=== PATIENT | female | born 1990 | race Caucasian/White ===

== ENCOUNTER 2019-08-02 21:34 | Emergency (ER) | payer MEDICAID, OTHER ==
[2019-08-02] MEDS ORDERED: NORMAL SALINE 1000 ML 1,000 ML IV ONE (23:25)
[2019-08-02] MEDS ORDERED: KETOROLAC TROMETHAMINE 60 MG/2 ML SDV IM ONE (23:25)
[2019-08-02] MEDS ORDERED: ONDANSETRON 4 MG TAB.RAPDIS PO ONE (23:25)
--- NOTE | 2019-08-02 23:26 | ER Document Report ---
ED Medical Screen (RME) - General Chief Complaint: Pelvic Pain Stated Complaint: POSSIBLE KIDNEY STONES Time Seen by Provider: 08/02/19 23:21 Primary Care Provider: CONSTANTIN GARCIA MD [Primary Care Provider] - Follow up as needed TRAVEL OUTSIDE OF THE [place] IN LAST 30 DAYS: No - HPI Notes: 08/02/19 23:26 29-year-old female to the emergency department with complaints of right-sided flank pain, right pelvic pain, and mid pelvic pain for the past 2 days with associated dysuria and hematuria. She states that she is passing clots. She states she feels like this may be a kidney stone. She last had one 1 year ago. She admits to nausea and vomiting. She denies any fevers or chills. Performed a brief medical screening exam on the patient determined that she will need further evaluation and management by main side provider. I placed initial orders to help expedite her care. - Related Data Allergies/Adverse Reactions: No Known Allergies Allergy (Unverified 08/02/19 23:17) Physical Exam - Vital signs Vitals: Temp Pulse Resp BP Pulse Ox 98.7 F 85 20 155/69 H 97 08/02/19 22:05 08/02/19 22:05 08/02/19 22:05 08/02/19 22:05 08/02/19 22:05 Course - Vital Signs Vital signs: Temp Pulse Resp BP Pulse Ox 98.7 F 85 20 155/69 H 97 08/02/19 22:05 08/02/19 22:05 08/02/19 22:05 08/02/19 22:05 08/02/19 22:05 Doctor's Discharge - Discharge Referrals: CONSTANTIN GARCIA MD [Primary Care Provider] - Follow up as needed
[2019-08-02 23:56] LABS: ABSOLUTE EOSINOPHILS # (AUTO) 0.1 10^3/uL (0.0-0.6); ABSOLUTE LYMPHOCYTES (AUTO) 3.2 10^3/uL (0.5-4.7); ABSOLUTE MONOCYTES (AUTO) 0.5 10^3/uL (0.1-1.4); ABSOLUTE NEUT (AUTO) 5.5 10^3/uL (1.7-8.2); BASOPHILS % (AUTO) 0.5 % (0-2); EOSINOPHILS % (AUTO) 0.8 % (0-6); HEMATOCRIT 40.8 % (36.0-47.0); HEMOGLOBIN 14.1 g/dL (12.0-15.5); LYMPHOCYTES % (AUTO) 34.8 % (13-45); MEAN CORPUSCULAR HEMOGLOBIN 30.5 pg (27.0-33.4); MEAN CORPUSCULAR HGB CONC 34.5 g/dL (32.0-36.0); MEAN CORPUSCULAR VOLUME 89 fl (80-97); MONOCYTES % (AUTO) 5.1 % (3-13); PLATELET COUNT 300 10^3/uL (150-450); RED BLOOD COUNT 4.61 10^6/uL (3.72-5.28); RED CELL DISTRIBUTION WIDTH 14.3 % (11.5-14.0); SEGMENTED NEUTROPHILS % (AUTO) 58.8 % (42-78); TOTAL CELLS COUNTED % (AUTO) 100 %; WHITE BLOOD COUNT 9.3 10^3/uL (4.0-10.5)
[2019-08-03 00:05] LABS: ALBUMIN 3.8 g/dL (3.5-5.0); ALKALINE PHOSPHATASE 133 U/L (38-126); ANION GAP 6 (5-19); ASPARTATE AMINO TRANSFERASE 102 U/L (14-36); BILIRUBIN,DIRECT 0.3 mg/dL (0.0-0.4); BILIRUBIN,TOTAL 0.3 mg/dL (0.2-1.3); BLOOD UREA NITROGEN 10 mg/dL (7-20); CALCIUM 9.6 mg/dL (8.4-10.2); CARBON DIOXIDE 33 mmol/L (22-30); CHLORIDE 99 mmol/L (98-107); GLUCOSE 124 mg/dL (75-110); POTASSIUM 4.5 mmol/L (3.6-5.0); TOTAL PROTEIN 6.7 g/dL (6.3-8.2)
--- NOTE | 2019-08-03 00:45 | RADIOLOGY REPORT (SQ) ---
EXAM DESCRIPTION: Noncontrast CT abdomen pelvis CLINICAL HISTORY: 29 years Female RIGHT flank pain, hematuria, eval stone COMPARISON: None. TECHNIQUE: Contiguous axial images obtained through the abdomen and pelvis without the use of IV contrast. Reformatted images obtained. This exam was performed according to our department optimization program which includes automated exposure control, adjustment of the mA and/or kv according to patient size and/or use of iterative reconstruction technique. FINDINGS: The visualized lung bases demonstrate subtle tree-in-bud nodularity within the lingula. Additionally, there is a 5 mm solid appearing nodule within the lateral left lung base. The liver appears unremarkable. The spleen and pancreas appear unremarkable. No adrenal masses. The kidneys appear unremarkable. No hydronephrosis. The gallbladder is visualized. No aneurysmal dilatation of the aorta. No bowel obstruction. There is moderate colonic stool burden. The appendix is unremarkable. Suggestion of multiple prominent appearing mesenteric lymph nodes, difficult to separate from adjacent bowel given noncontrast technique. Intrauterine device is noted. No significant free fluid noted. No suspicious lytic or blastic osseous lesions are identified. There is suggestion of potential transitional anatomy involving the right aspect of the L5-S1 level. IMPRESSION: 1. No CT evidence of nephrolithiasis or hydronephrosis. 2. Prominent mesenteric lymph nodes are nonspecific and difficult to evaluate with noncontrast technique. Findings could be reactive in nature or related to underlying process such as mesenteric adenitis.
--- NOTE | 2019-08-03 01:09 | ER Document Report ---
ED GI/ - General Chief Complaint: Pelvic Pain Stated Complaint: POSSIBLE KIDNEY STONES Time Seen by Provider: 08/02/19 23:21 Primary Care Provider: CONSTANTIN GARCIA MD [ACTIVE STAFF] - Follow up as needed Information source: Patient Notes: Patient reports for the past 1 to 2 days she is noticed blood in her urine with urinary frequency. And pain. Patient was suspicious that she may have a urinary tract infection versus a kidney stone. Patient reports that she had pain greatest in the right lower quadrant region. Noted nausea as well. Patient reports that she heard and saw her a stone passed while in the shower. Patient does give a history that she believes he passed a stone about 1 to 2 years ago never had any follow-up with urologist because there was no further occurrence of hematuria. TRAVEL OUTSIDE OF THE [place] IN LAST 30 DAYS: No - HPI Patient complains to provider of: Abdominal pain, Dysuria, Hematuria Onset: Yesterday Timing/Duration: Gradual, Intermittent Quality of pain: Achy, Cramping Severity at maximum: Severe Severity in ED: Severe Pain Level: 5 Context: Other - Spontaneous Location: RLQ Vaginal bleeding (Compared to normal period): None Sexual history: Active Associated symptoms: None, Dysuria Exacerbated by: Other Relieved by: Other - No relief until arriving to the emergency department Similar symptoms previously: Yes - Belief of passing kidney stones in the past Recently seen / treated by doctor: No - Related Data Allergies/Adverse Reactions: No Known Allergies Allergy (Unverified 08/02/19 23:17) Past Medical History - Social History Smoking Status: Current Every Day Smoker Lives with: Family Family History: Reviewed & Not Pertinent Patient has suicidal ideation: No Patient has homicidal ideation: No Pulmonary Medical History: Reports: None EENT Medical History: Reports: None Neurological Medical History: Reports: None Renal/ Medical History: Reports: Hx Kidney Stones Musculoskeletal Medical History: Reports None Skin Medical History: Reports None Review of Systems - Review of Systems Constitutional: Malaise EENT: No symptoms reported Cardiovascular: No symptoms reported Respiratory: No symptoms reported Gastrointestinal: No symptoms reported, Abdominal pain Genitourinary: Dysuria, Flank pain Female Genitourinary: No symptoms reported Musculoskeletal: No symptoms reported Skin: No symptoms reported Hematologic/Lymphatic: No symptoms reported Neurological/Psychological: No symptoms reported -: Yes All other systems reviewed and negative Physical Exam - Vital signs Vitals: Temp Pulse Resp BP Pulse Ox 98.7 F 85 20 155/69 H 97 08/02/19 22:05 08/02/19 22:05 08/02/19 22:05 08/02/19 22:05 08/02/19 22:05 Interpretation: Normal - General General appearance: Appears well, Alert - HEENT Head: Normocephalic, Atraumatic Eyes: Normal Pupils: PERRL - Respiratory Respiratory status: No respiratory distress Chest status: Nontender Breath sounds: Normal Chest palpation: Normal - Cardiovascular Rhythm: Regular Heart sounds: Normal auscultation Murmur: No - Abdominal Inspection: Normal Distension: No distension Bowel sounds: Normal Tenderness: Nontender, Other - Tenderness suprapubic more to the right. No guarding no rebound Organomegaly: No organomegaly - Back Back: Normal, Nontender - Extremities General upper extremity: Normal inspection, Nontender, Normal color, Normal ROM, Normal temperature General lower extremity: Normal inspection, Nontender, Normal color, Normal ROM, Normal temperature, Normal weight bearing. No: Kelsey's sign - Neurological Neuro grossly intact: Yes Cognition: Normal Orientation: AAOx4 [place]app[place] Coma Scale Eye Opening: Spontaneous [place] Coma Scale Verbal: Oriented [place] Coma Scale Motor: Obeys Commands Chappells Coma Scale Total: 15 Speech: Normal Motor strength normal: LUE, RUE, LLE, RLE Sensory: Normal - Psychological Associated symptoms: Normal affect, Normal mood - Skin Skin Temperature: Warm Skin Moisture: Dry Skin Color: Normal Course - Re-evaluation Re-evalutation: 08/03/19 03:55 Discussed with patient results of her CT scan which did not show evidence for kidney stones or any recent passage of kidney stones. There was mesenteric lymph nodes that were present uncertain as the etiology of why some were more prominent than others. Discussed with patient that there is a disease of h emorrhagic cystitis which is due to bacterial infection that gets inside the urinary bladder and causing hemorrhage of the mucosal lining. That is a likelihood that this is what patient has and therefore antibiotics has been given. The plan is to discharge patient home on antibiotics and pain management and to follow-up with urologist for further evaluation. Of note patient states that her systolic blood pressure is usually around 92 which is her baseline. Patient systolic blood pressure current time is 96. - Vital Signs Vital signs: Temp Pulse Resp BP Pulse Ox 98.7 F 66 14 90/55 L 96 08/02/19 22:05 08/03/19 02:02 08/03/19 02:02 08/03/19 03:01 08/03/19 03:01 - Laboratory Result Diagrams: 08/02/19 23:38 08/02/19 23:38 Laboratory results interpreted by me: 08/02/19 08/02/19 08/03/19 23:38 23:38 01:05 RDW 14.3 H Carbon Dioxide 33 H Glucose 124 H AST 102 H Alkaline Phosphatase 133 H Urine Protein 100 H Urine Blood MODERATE H Urine Urobilinogen 4.0 H Leukocyte Esterase Rfl MODERATE H Discharge - Discharge Clinical Impression: Acute hemorrhagic cystitis Hematuria Qualifiers: Hematuria type: gross Qualified Code(s): R31.0 - Gross hematuria Abdominal pain Qualifiers: Abdominal location: right lower quadrant Qualified Code(s): R10.31 - Right lower quadrant pain Urinary tract infection Qualifiers: Urinary tract infection type: acute cystitis Hematuria presence: with hematuria Qualified Code(s): N30.01 - Acute cystitis with hematuria Condition: Stable Disposition: HOME, SELF-CARE Instructions: Abdominal Pain ([facility]), Antinausea Medication ([facility]), Urinary Tract Infection ([facility]), Trimethoprim-Sulfa ([facility]) Prescriptions: Tramadol HCl [Ultram 50 mg Tablet] 50 mg PO Q6HP PRN #12 tab PRN Reason: severe pain Sulfamethoxazole/Trimethoprim [Bactrim Ds Tablet] 1 each PO BID #20 tablet Ondansetron HCl [Zofran] 8 mg PO TID PRN #10 tablet PRN Reason: nausea Referrals: CONSTANTIN GARCIA MD [ACTIVE STAFF] - Follow up as needed (Urology follow-up [facility], [address] [place] [address], [facility] telephone number area code [phone])
[2019-08-03 01:18] LABS: APPEARANCE,URINE CLOUDY; BILIRUBIN,URINE NEGATIVE (NEGATIVE); COLOR,URINE YELLOW; GLUCOSE, URINE NEGATIVE (NEGATIVE); KETONES,URINE NEGATIVE (NEGATIVE); PROTEIN,URINE 100 mg/dL (NEGATIVE)
[2019-08-03] MEDS ORDERED: NORMAL SALINE 1000 ML 1,000 ML IV ONE (02:14)
[2019-08-03] MEDS ORDERED: CEFTRIAXONE 1 GM/D5W RTU 1 GM/50 ML RTUPB IV ONE (02:15)
[2019-08-03] MEDS ORDERED: MORPHINE SULFATE 10 MG/ML INJ IV ONE (03:47)
[2019-08-03] MEDS ORDERED: ONDANSETRON HCL INJ/PF 4 MG/2 ML SDV IV ONE (03:47)
[2019-08-03 04:10] LABS: URINE AMPHETAMINES SCREEN NEGATIVE; URINE BARBITURATES SCREEN NEGATIVE; URINE BENZODIAZEPINES SCREEN NEGATIVE; URINE COCAINE SCREEN NEGATIVE; URINE METHADONE SCREEN NEGATIVE; URINE PHENCYCLIDINE SCREEN NEGATIVE
[2019-08-03 04:12] LABS: URINE MARIJUANA (THC) SCREEN UNCONFIRMED POSITIVE
[2019-08-03 04:13] VITALS: BP 94/60
== END 2019-08-03 04:22 | disposition home or self-care (01) ==
LOC: ER 21:34
DX: N30.01 Acute cystitis with hematuria (principal); R10.2 Pelvic and perineal pain; R35.0 Frequency of micturition; R10.31 Right lower quadrant pain; R30.0 Dysuria; F17.200 Nicotine dependence, unspecified, uncomplicated
CPT/HCPCS: 36415; 87040; 87086; 84703; 85025; 87088; 80053; 81001; 80307; 74176; J1885; S0119; J2270; J2405; J7030; J0696; 96361; 96365; 96375; 99284

== ENCOUNTER 2019-11-18 21:17 | Emergency (ER) | payer SELFPAY ==
[2019-11-18] MEDS ORDERED: OXYCODONE-ACETAMINOPHEN 5-325 MG TABLET PO ONE (23:33)
[2019-11-18] MEDS ORDERED: AMOXICILLIN TRIHYDRATE 500 MG CAPSULE PO ONE (23:33)
[2019-11-18] MEDS ORDERED: AMOXICILLIN TR/POT CLAVULANATE 875-125 MG TAB PO ONE (23:33)
[2019-11-18] MEDS ORDERED: DIPH/PERTUSS(ACELL)/TETANUS VAC/PF 0.5 ML SYR (>=10YO) IM ONE (23:33)
[2019-11-18] MEDS ORDERED: ONDANSETRON 4 MG TAB.RAPDIS PO ONE (23:33)
--- NOTE | 2019-11-18 23:34 | ER Document Report ---
ED Animal Bite - General Chief Complaint: Animal Bite Stated Complaint: DOG BITES BOTH ARMS Time Seen by Provider: 11/18/19 23:03 Notes: Patient is a 29-year-old female that comes to the emergency department for chief complaint of dog bites to her forearms. She states that she was trying to break up her to pet pitbull dogs from fighting when they bit her in the attempt. She states her dogs are completely vaccinated. Patient is unsure of her tetanus status. Patient denies any other injuries or any other complaints. Patient denies . TRAVEL OUTSIDE OF THE [place] IN LAST 30 DAYS: No - Related Data Allergies/Adverse Reactions: No Known Allergies Allergy (Unverified 08/02/19 23:17) Home Medications: none Past Medical History - General Information source: Patient - Social History Smoking Status: Current Every Day Smoker Chew tobacco use (# tins/day): No Frequency of alcohol use: None Drug Abuse: None Lives with: Family Family History: Reviewed & Not Pertinent Patient has homicidal ideation: No Renal/ Medical History: Reports: Hx Kidney Stones Surgical Hx: Negative - Immunizations Immunizations up to date: No Hx Diphtheria, Pertussis, Tetanus Vaccination: Yes Review of Systems - Review of Systems Constitutional: No symptoms reported EENT: No symptoms reported Cardiovascular: No symptoms reported Respiratory: No symptoms reported Gastrointestinal: No symptoms reported Genitourinary: No symptoms reported Female Genitourinary: No symptoms reported Musculoskeletal: See HPI Skin: See HPI Hematologic/Lymphatic: No symptoms reported Neurological/Psychological: No symptoms reported Physical Exam - Vital signs Vitals: Temp 98.4 F 11/18/19 21:17 - Notes Notes: GENERAL: Alert, interacts well. No acute distress. HEAD: Normocephalic, atraumatic. EYES: Pupils equal, round, and reactive to light. Extraocular movements intact. ENT: Oral mucosa moist, tongue midline. Oropharynx unremarkable. Airway patent. NECK: Full range of motion. Supple. Trachea midline. No lymphadenopathy. LUNGS: Clear to auscultation bilaterally, no wheezes, rales, or rhonchi. No respiratory distress. Non-tender chest wall. HEART: Regular rate and rhythm. No murmur ABDOMEN: Soft, non-tender. Non-distended. Bowel sounds present in all 4 quadrants. GENITOURINARY: Deferred EXTREMITIES: forearm puncture wounds in the mid-forearm bilaterally; mainly superficial punctures but one puncture on each forearm is into the subcutaneous tissue with some surrounding soft tissue swelling. There is no current bleeding, there is no exquisite or noted bony tenderness, full range of motion of the elbow, wrist, and of all fingers. No injuries to the wrist or hand noted. Normal distal neurovascular exam bilaterally. Unremarkable exam otherwise. BACK: no cervical, thoracic, lumbar midline tenderness. No saddle anesthesia, normal distal neurovascular exam. Moves all extremities in full range of motion. NEUROLOGICAL: Alert and oriented x3. Normal speech. Cranial nerves II through XII grossly intact. Strength 5/5 in all extremities. PSYCH: Normal affect, normal mood. SKIN: Warm, dry, normal turgor. No rashes or lesions noted. Course - Re-evaluation Re-evalutation: X-rays negative for foreign body or fracture. Patient with puncture wounds and otherwise superficial wounds in the forearms bilaterally, no other wounds noted. I did discuss with patient, instead of closure these will simply be thoroughly irrigated and cleansed, dressed, and patient will be placed on antibiotics. Patient states understanding that this is because of the high infection risk with closure. Discussed expectations, care, return precautions. Patient states understanding and agreement. - Vital Signs Vital signs: Temp Pulse Resp BP Pulse Ox 98.1 F 81 17 113/70 97 11/19/19 02:33 11/19/19 02:33 11/19/19 02:33 11/19/19 02:33 11/19/19 02:33 Discharge - Discharge Clinical Impression: Dog bite Qualifiers: Encounter type: initial encounter Qualified Code(s): W54.0XXA - Bitten by dog, initial encounter Forearm laceration Qualifiers: Encounter type: initial encounter Laterality: unspecified laterality Qualified Code(s): S51.819A - Laceration without foreign body of unspecified forearm, initial encounter Condition: Stable Disposition: HOME, SELF-CARE Instructions: Tetanus Immunization Given ([facility]) Additional Instructions: The dog bites have been cleaned but not closed because of the risk of infection. Keep areas clean, clean with soap and water, keep clean dressing over the area with topical antibiotic. Icing the swollen areas can also help over the first couple of days. Rest your arms. The x-rays were normal. Take the antibiotic as prescribed to completion. I recommend an over-the- counter probiotic to avoid diarrhea with this. Ibuprofen can help with the pain and swelling as well. Follow-up with primary care. Return if you worsen including developing severe worsening pain, spreading redness, discolored drainage, fever, or any other concerning symptoms. Prescriptions: Amoxicillin/Potassium Clav [Augmentin 875-125 Tablet] 1 tab PO BID 7 Days #14 t ablet Forms: Return to Work
--- NOTE | 2019-11-19 00:31 | RADIOLOGY REPORT (SQ) ---
EXAM DESCRIPTION: XR FOREARM 2 VIEWS BILATERAL COMPLETED DATE/TME: 11/18/2019 23:33 CLINICAL HISTORY: 29 years, Female, dog bites, pain, swelling COMPARISON: None. NUMBER OF VIEWS: 4 TECHNIQUE: 2 views of each forearm LIMITATIONS: None. FINDINGS: Negative for fracture or dislocation to either forearm. Minor soft tissue injury consistent with ultrasound once. No radiopaque foreign body IMPRESSION: No acute osseous abnormality copyright 2010 [employer]- All Rights Reserved
[2019-11-19 02:34] VITALS: BP 113/70
== END 2019-11-19 02:34 | disposition home or self-care (01) ==
LOC: ER 21:17
DX: S51.852A Open bite of left forearm, initial encounter (principal); S51.851A Open bite of right forearm, initial encounter; W54.0XXA Bitten by dog, initial encounter; F17.200 Nicotine dependence, unspecified, uncomplicated; Z23 Encounter for immunization
CPT/HCPCS: 99283; 90471; 73090; 90715; S0119; J3490